=== PATIENT | female | born 1995 | race Caucasian/White ===

== ENCOUNTER 2017-06-16 00:52 | Emergency (ER) | payer OTHER ==
[~2017-06-16] VITALS: Ht 152.4 cm; Wt 65.8 kg
[2017-06-16] MEDS ORDERED: KEFLEX500 MG PO (01:15)
[2017-06-16] MEDS ORDERED: SILVADENE20 GM TOP (01:15)
[2017-06-16 01:35] VITALS: BP 106/66
== END 2017-06-16 01:40 | disposition home or self-care (01) ==
LOC: ER 00:52
DX: O9A.212 Injury, poisoning and certain other consequences of external causes complicating pregnancy, second trimester (principal); Z3A.18 18 weeks gestation of pregnancy; T24.021A Burn of unspecified degree of right knee, initial encounter; T31.0 Burns involving less than 10% of body surface; V29.9XXA Motorcycle rider (driver) (passenger) injured in unspecified traffic accident, initial encounter; Y93.89 Activity, other specified; Y92.89 Other specified places as the place of occurrence of the external cause; Y99.8 Other external cause status